=== PATIENT | male | born 1955 ===

== ENCOUNTER → 2022-01-04 11:48 | Outpatient (CLI) | payer OTHER | END | disposition home or self-care (01) | LOC: LAB 11:48 | PROVIDERS: ATTEND Colon & Rectal Surgery | DX: I10 Essential (primary) hypertension (principal) ==

== ENCOUNTER 2022-09-18 16:54 | Inpatient (IN) | payer OTHER ==
[~2022-09-18] VITALS: Ht 175.3 cm; Wt 920.8 kg
[2022-09-19] MEDS ORDERED: COZAAR25 MG PO (15:04)
[2022-09-19] MEDS ORDERED: D3 + K2 DOTS 11 EACH PO (15:04)
[2022-09-19] MEDS ORDERED: ALLEGRA ALLERGY60 MG PO (15:04)
[2022-09-19] MEDS ORDERED: CHILDREN'S ASPI81 MG PO (15:04)
[2022-09-19] MEDS ORDERED: PLAVIX75 MG PO (15:04)
[2022-09-25] MEDS ORDERED: LOSARTAN-HCTZ1 EAC1 (11:32)
[2022-09-25] MEDS ORDERED: FUROSEMIDE20 MG (11:32)
[2022-09-25] MEDS ORDERED: MAXIMUM D3325 MCG (11:32)
[2022-09-25] MEDS ORDERED: MONTELUKAST SOD10 MG (11:32)
[2022-09-25] MEDS ORDERED: OMEPRAZOLE20 MG (11:33)
== END 2022-10-24 20:54 | DRG 329 ==
LOC: SURG 09-25 08:05 → O/R 09-25 08:05 → SURG 09-25 09:45 → ICU 10-01 13:53 → SURH 10-04 14:24
PROVIDERS: ADMIT Colon & Rectal Surgery; ATTEND Colon & Rectal Surgery
PROC: 0DBP4ZZ Excision of Rectum, Percutaneous Endoscopic Approach (ICD-10-PCS; 2022-09-25)
PROC: 0WQF4ZZ Repair Abdominal Wall, Percutaneous Endoscopic Approach (ICD-10-PCS; 2022-09-25)
PROC: 0DBE4ZZ Excision of Large Intestine, Percutaneous Endoscopic Approach (ICD-10-PCS; 2022-09-25)
PROC: 0DJD8ZZ Inspection of Lower Intestinal Tract, Via Natural or Artificial Opening Endoscopic (ICD-10-PCS; 2022-09-25)
PROC: 0DTN4ZZ Resection of Sigmoid Colon, Percutaneous Endoscopic Approach (ICD-10-PCS; principal; 2022-09-25 10:30)
PROC: 02HV33Z Insertion of Infusion Device into Superior Vena Cava, Percutaneous Approach (ICD-10-PCS; 2022-09-28)
PROC: 4A12X4Z Monitoring of Cardiac Electrical Activity, External Approach (ICD-10-PCS; 2022-09-28)
PROC: B345ZZZ Ultrasonography of Bilateral Common Carotid Arteries (ICD-10-PCS; 2022-09-28)
PROC: B24BZZZ Ultrasonography of Heart with Aorta (ICD-10-PCS; 2022-09-28)
PROC: BW28ZZZ Computerized Tomography (CT Scan) of Head (ICD-10-PCS; 2022-09-30)
PROC: BW21YZZ Computerized Tomography (CT Scan) of Abdomen and Pelvis using Other Contrast (ICD-10-PCS; 2022-10-03)
PROC: B030ZZZ Magnetic Resonance Imaging (MRI) of Brain (ICD-10-PCS; 2022-10-08)
PROC: BW24ZZZ Computerized Tomography (CT Scan) of Chest and Abdomen (ICD-10-PCS; 2022-10-14)
DX: K57.32 Diverticulitis of large intestine without perforation or abscess without bleeding (principal); I63.532 Cerebral infarction due to unspecified occlusion or stenosis of left posterior cerebral artery; N17.9 Acute kidney failure, unspecified; I69.351 Hemiplegia and hemiparesis following cerebral infarction affecting right dominant side; N39.0 Urinary tract infection, site not specified; E87.1 Hypo-osmolality and hyponatremia; I69.320 Aphasia following cerebral infarction; D75.1 Secondary polycythemia; K43.2 Incisional hernia without obstruction or gangrene; K66.0 Peritoneal adhesions (postprocedural) (postinfection); I12.9 Hypertensive chronic kidney disease with stage 1 through stage 4 chronic kidney disease, or unspecified chronic kidney disease; N18.9 Chronic kidney disease, unspecified; I25.10 Atherosclerotic heart disease of native coronary artery without angina pectoris; Z20.822 Contact with and (suspected) exposure to COVID-19; B96.20 Unspecified Escherichia coli [E. coli] as the cause of diseases classified elsewhere
CPT/HCPCS: 70553